=== PATIENT | male | born 1990 | race African-American/Black ===

== ENCOUNTER 2018-08-20 10:26 | Emergency (ER) | payer SELFPAY ==
[~2018-08-20] VITALS: Ht 182.9 cm; Wt 90.0 kg
[2018-08-20 10:39] VITALS: Ht 182.9 cm; Wt 90.0 kg
[2018-08-20 11:27] LABS: BASOPHILS 0.1 % (0-2); EOSINOPHILS 0.6 % (0-7); HEMATOCRIT 43.5 % (42.0-54.0); HEMOGLOBIN 15.6 g/dL (13.5-17.5); IMMATURE GRANULOCYTES 0.4 % (0-5); LYMPHOCYTES 18.8 % (15-50); MCH 31.8 pg (26.0-34.0); MCHC 35.9 g/dL (31.0-37.0); MCV 88.6 fL (80.0-100.0); MEAN PLATELET VOLUME 9.9 fL (7.4-10.4); MONOCYTES 7.9 % (2-11); NEUTROPHILS 72.2 % (40-80); PLATELET COUNT 200 10x3/uL (130-400); RBC 4.91 10x6/uL (4.20-6.10); RDW 13.6 % (11.5-14.5); WBC 13.5 10x3/uL (4.8-10.8)
[2018-08-20 11:41] LABS: ALBUMIN 4.1 g/dL (3.4-5.0); ALKALINE PHOSPHATASE 65 U/L (46-116); ALT (SGPT) 25 U/L (10-68); BILIRUBIN - TOTAL 0.36 mg/dL (0.2-1.3); CALC OSMOLALITY 277 mosm/kg (275-300); CALCIUM 8.9 mg/dL (8.5-10.1); CHLORIDE - SERUM 103 mmol/L (98-107); CREATININE - SERUM 1.2 mg/dL (0.6-1.3); GLUCOSE 90 mg/dL (74-106); POTASSIUM - SERUM 3.9 mmol/L (3.5-5.1); PROTEIN - SERUM 7.8 g/dL (6.4-8.2); SODIUM 140 mmol/L (136-145); UREA NITROGEN 10 mg/dL (7-18); eGFR NON AFRICAN AMERICAN 78 mL/min (90-120)
[2018-08-20 11:51] LABS: APPEARANCE CLEAR (CLEAR); COLOR YELLOW (YELLOW); NITRITE NEGATIVE (NEGATIVE); SPECIFIC GRAVITY 1.015 (1.005-1.020)
[2018-08-20 11:52] LABS: BILIRUBIN NEGATIVE (NEGATIVE); GLUCOSE NEGATIVE (NEGATIVE); KETONE NEGATIVE (NEGATIVE); PROTEIN NEGATIVE (NEGATIVE)
[2018-08-20] MEDS ORDERED: CYCLOBENZAPRINE10 MG PO (14:46)
[2018-08-20] MEDS ORDERED: IBUPROFEN800 MG PO (14:46)
[2018-08-20] MEDS ORDERED: BACTRIM 400-801 TAB PO (14:47)
[2018-08-20] MEDS ORDERED: VIBRAMYCIN 100100 MG PO (14:47)
[2018-08-20 15:54] VITALS: BP 130/71
== END 2018-08-20 15:55 | disposition home or self-care (01) ==
LOC: D.ER 10:26
PROVIDERS: Family Medicine
DX: S41.011A Laceration without foreign body of right shoulder, initial encounter (principal); V03.90XA Pedestrian on foot injured in collision with car, pick-up truck or van, unspecified whether traffic or nontraffic accident, initial encounter; Y93.89 Activity, other specified; Y92.410 Unspecified street and highway as the place of occurrence of the external cause; M62.838 Other muscle spasm; M25.511 Pain in right shoulder

== ENCOUNTER 2018-09-20 22:13 | Emergency (ER) | payer SELFPAY ==
[~2018-09-20] VITALS: Ht 182.9 cm; Wt 90.0 kg
[~2018-09-20 22:13] MED LIST: BACTRIM 400-801 TAB PO; CYCLOBENZAPRINE10 MG PO; IBUPROFEN800 MG PO; VIBRAMYCIN 100100 MG PO
[2018-09-20 22:26] VITALS: BP 150/86; Ht 182.9 cm; Wt 90.0 kg
[2018-09-21] MEDS ORDERED: VOLTAREN100 GM TOPICAL (00:16)
[2018-09-21] MEDS ORDERED: CYCLOBENZAPRINE10 MG PO (00:16)
[2018-09-21] MEDS ORDERED: AUGMENTIN 875-11 TAB PO (00:22)
== END 2018-09-21 01:05 | disposition home or self-care (01) ==
LOC: D.ER 22:13
DX: M54.2 Cervicalgia (principal); H66.91 Otitis media, unspecified, right ear; G44.309 Post-traumatic headache, unspecified, not intractable